=== PATIENT | female | born 1975 | race Caucasian/White ===

== ENCOUNTER 2016-12-10 12:17 | Emergency (ER) | payer OTHER ==
--- NOTE | 2016-12-10 12:41 | CPEKG ---
Heart Rate: 70 RR Interval: 857 P-R Interval: 142 QRSD Interval: 80 QT Interval: 392 QTC Interval: 423 P [place]: 54 QRS [place]: 12 T Wave [place]: 20 EKG Severity - NORMAL ECG - EKG Impression: SINUS RHYTHM Electronically Signed By: Roger Balbuena 10-Dec-2016 15:00:51
[2016-12-10] MEDS ORDERED: ONDANSETRON 4 MG/2 ML VIAL IVP ONE (13:05)
[2016-12-10] MEDS ORDERED: NS 1,000 ML IV ONE (13:06)
[2016-12-10] MEDS ORDERED: DIAZEPAM 10 MG/2 ML SYR IVP ONE (13:06)
[2016-12-10] MEDS ORDERED: FAMOTIDINE 20 MG/NACL 50 ML IV ONE (13:07)
--- NOTE | 2016-12-10 13:11 | EDPHY ---
H & P Time Seen by Provider: 12/10/16 12:46 HPI/ROS: CHIEF COMPLAINT: Vertigo HISTORY OF PRESENT ILLNESS: This is a 41-year-old female who had her 1st episode of vertigo two and one half weeks ago. She was standing, turned around , lost her balance and fell forward onto a bed. This was accompanied by a feeling of spinning and being off balance. She has had daily episodes of vertigo since then. She saw her primary care physician last week and was started on meclizine. She has an appointment with an cash room clerk next week. However, her episodes of vertigo continue, in spite of taking the meclizine. Today she experienced an episode that began earlier in the day than previous episodes. She had no relief with meclizine. She felt poorly enough that she left work and while she was putting on her jacket she became winded, began to sweat, felt her heart pounding and had chest pressure for about 15 minutes. She does experience anxiety attacks but they are not usually accompanied with chest pressure. The chest pressure occurred 1 hour ago. All of these symptoms have resolved. She also reports midepigastric cramping that is intermittent and nausea that she has been experiencing after eating. This has been going on for a couple of weeks. Aside from cutting back on her oral intake she has not tried to treat this problem. REVIEW OF SYSTEMS: A ten point review of systems was performed and is negative with the exception of the items mentioned in the HPI. Past Medical/Surgical History: 1. Graves disease, in remission 2. Hyperlipidemia on simvastatin 3. Trigeminal neuralgia on carbamazepine every other day Social History: She works in [employer]. She does not use tobacco products, alcohol, or illicit drugs. She drinks 1-2 caffeinated beverages daily. Her primary care physician is in [place]. Smoking Status: Former smoker Physical Exam: General Appearance: Alert. Vital signs reviewed. Blood pressure 149/94. Eyes: Pupils equal and round, no conjunctival injection, no discharge. Anicteric. ENT, Mouth: Mucous membranes are moist, no oropharyngeal erythema or edema. Neck: No lymphadenopathy, supple. Respiratory: Lungs are clear to auscultation; no wheezes, rales, or rhonchi. Cardiovascular: Regular rate and rhythm; no murmur, rub, or gallop. Gastrointestinal: Abdomen is soft and nontender, no masses or organomegaly, bowel sounds normal. Skin: Warm and dry, no rashes on exposed skin, normal color. Neurological: Alert and oriented. Moving all four extremities easily and equally. Cranial nerves II through XII are examined and are intact (visual acuity not tested). No nystagmus. Strength is 5 over 5 bilaterally with testing of all major motor groups. Sensation is intact to light touch over all 4 extremities. Deep tendon reflexes are 2+ in the biceps and knees bilaterally. Finger-to- nose is performed accurately. Psychiatric: Normal affect. Constitutional: Initial Vital Signs Temperature (C) 36.7 C 12/10/16 12:18 Heart Rate 85 12/10/16 12:18 Respiratory Rate 16 12/10/16 12:18 Blood Pressure 149/94 H 12/10/16 12:18 O2 Sat (%) 97 12/10/16 12:18 O2 Delivery Mode Room Air Allergies/Adverse Reactions: No Known Allergies Allergy (Unverified 12/10/16 12:21) Home Medications: Medication Instructions Recorded Diazepam [Valium 5 MG (*)] 5 mg PO TID PRN #10 tab 12/10/16 Meclizine HCl 12/10/16 Medical Decision Making - Diagnostics EKG Interpretation: 12 lead EKG is interpreted in Trace master View by emergency department physician. Normal sinus rhythm. ED Course/Re-evaluation: 41-year-old with onset of daily vertigo over 2 weeks ago. Today her vertigo did not respond to meclizine. She feels somewhat better in the emergency department but not back to normal yet. She is being given a dose of Valium IV, 1 L normal saline IV. She felt markedly better after Valium. She was able to get up and walk without assistance and without feeling vertiginous. I think that she is experiencing a peripheral vertigo. It was abrupt in onset, comes and goes, response to medication and is not associated with any other symptoms such as headache, loss of hearing, confusion, or weakness. She has not had fever. She has an appoint with Otolaryngology next week. I do not think that intracranial imaging is needed at this time. We reviewed the danger signs that should prompt her to be re-evaluated immediately. She has meclizine that she will use as needed. She is also given a prescription for Valium with instructions as to its usage. Differential Diagnosis: Vertigo including but not limited to peripheral causes such as benign positional vertigo, Meniere's disease, viral labyrinthitis and central causes such as CVA, and tumor. - Data Points Laboratory Results: Laboratory Results 12/10/16 13:00 12/10/16 13:00 12/10/16 13:00 WBC 4.95 10^3/uL (3.80-9.50) RBC 4.55 10^6/uL (4.18-5.33) Hgb 13.7 g/dL (12.6-16.3) Hct 40.1 % (38.0-47.0) MCV 88.1 fL (81.5-99.8) MCH 30.1 pg (27.9-34.1) MCHC 34.2 g/dL (32.4-36.7) RDW 12.5 % (11.5-15.2) Plt Count 267 10^3/uL (150-400) MPV 10.3 fL (8.7-11.7) Neut % (Auto) 58.6 % (39.3-74.2) Lymph % (Auto) 32.5 % (15.0-45.0) [place] % (Auto) 6.5 % (4.5-13.0) Eos % (Auto) 1.6 % (0.6-7.6) Baso % (Auto) 0.4 % (0.3-1.7) Nucleat RBC Rel Count 0.0 % (0.0-0.2) Absolute Neuts (auto) 2.90 10^3/uL (1.70-6.50) Absolute Lymphs (auto) 1.61 10^3/uL (1.00-3.00) Absolute Monos (auto) 0.32 10^3/uL (0.30-0.80) Absolute Eos (auto) 0.08 10^3/uL (0.03-0.40) Absolute Basos (auto) 0.02 10^3/uL (0.02-0.10) Absolute Nucleated RBC 0.00 10^3/uL (0-0.01) Immature Gran % 0.4 % (0.0-1.1) Immature Gran # 0.02 10^3/uL (0.00-0.10) Sodium 143 mEq/L (134-144) Potassium 4.0 mEq/L (3.5-5.2) Chloride 104 mEq/L (97-110) Carbon Dioxide 26 mEq/l (22-31) Anion Gap 13 mEq/L (8-16) BUN 15 mg/dL (7-23) Creatinine 0.7 mg/dL (0.6-1.0) Estimated GFR > 60 Glucose 97 mg/dL (70-100) Calcium 9.5 mg/dL (8.5-10.4) Troponin I < 0.012 ng/mL (0-0.034) Medications Given: Discontinued Medications Diazepam (Valium Injection) 2.5 mg IVP EDNOW ONE Stop: 12/10/16 13:07 Last Admin: 12/10/16 13:23 Dose: 2.5 mg Sodium Chloride (Ns) 1,000 mls @ 0 mls/hr IV ONCE ONE PRN Reason: Wide Open Stop: 12/10/16 13:07 Last Admin: 12/10/16 13:20 Dose: 1,000 mls Famotidine/Sodium Chloride (Pepcid 20 Mg (Premix)) 50 mls @ 200 mls/hr IV ONCE ONE Stop: 12/10/16 13:21 Last Admin: 12/10/16 13:25 Dose: 50 mls Ondansetron HCl (Zofran) 4 mg IVP EDNOW ONE Stop: 12/10/16 13:06 Last Admin: 12/10/16 13:22 Dose: 4 mg Departure - Departure Disposition: Home, Routine, Self-Care Clinical Impression: Vertigo Condition: Good Instructions: Benign Paroxysmal Positional Vertigo (ED) Additional Instructions: Follow up with Ear, Nose, and Throat doctor as scheduled next week. You can continue to take the meclizine as prescribed if you have recurrent vertigo. You can also take the valium for vertigo, if it resurfaces. Do not take them together, but you can alternate them if needed. If you develop headache, change in hearing, confusion, change in vision, new weakness, new numbness, fever, or concerning symptoms. Referrals: [place],. [Primary Care Provider] - As per Instructions Prescriptions: Diazepam [Valium 5 MG (*)] 5 mg PO TID PRN #10 tab PRN Reason: vertigo
[2016-12-10 13:22] LABS: % IMMATURE GRANULYOCYTES 0.4 % (0.0-1.1); ABSOLUTE IMMATURE GRANULOCYTES 0.02 10^3/uL (0.00-0.10); ADD DIFF? NO; ADD MORPH? NO; ADD SCAN? NO; ATYPICAL LYMPHOCYTE FLAG 10 (0-99); FRAGMENT RBC FLAG 0 (0-99); HEMATOCRIT 40.1 % (38.0-47.0); HEMOGLOBIN 13.7 g/dL (12.6-16.3); LEFT SHIFT FLG 0 (0-99); LIPEMIA HEMOLYSIS FLAG 90 (0-99); MEAN CELL HEMOGLOBIN 30.1 pg (27.9-34.1); MEAN CELL HEMOGLOBIN CONCENTR. 34.2 g/dL (32.4-36.7); MEAN CELL VOLUME 88.1 fL (81.5-99.8); MEAN PLATELET VOLUME 10.3 fL (8.7-11.7); PLATELET CLUMPS FLAG 10 (0-99); PLATELET COUNT 267 10^3/uL (150-400); RED BLOOD CELL COUNT 4.55 10^6/uL (4.18-5.33); RED CELL DISTRIBUTION WIDTH 12.5 % (11.5-15.2)
[2016-12-10 13:34] LABS: ANION GAP 13 mEq/L (8-16); CALCIUM 9.5 mg/dL (8.5-10.4); CARBON DIOXIDE 26 mEq/l (22-31); CHLORIDE 104 mEq/L (97-110); CREATININE 0.7 mg/dL (0.6-1.0); GLOMERULAR FILTRATION RATE > 60; GLUCOSE 97 mg/dL (70-100); SODIUM 143 mEq/L (134-144)
[2016-12-10 13:43] LABS: TROPONIN I < 0.012 ng/mL (0-0.034)
[2016-12-10 15:41] VITALS: BP 132/79; PULSE 78; RESP 20; TEMP 98.2; O2SAT 97
== END 2016-12-10 15:45 | disposition home or self-care (01) ==
DX: R42 Dizziness and giddiness (principal); Z87.891 Personal history of nicotine dependence
CPT/HCPCS: 96374; J2405